=== PATIENT | male | born 1985 | race Caucasian/White ===

== ENCOUNTER 2021-05-14 20:32 | Emergency (ER) | payer BC, OTHER | END 2021-05-14 21:15 | disposition home or self-care (01) | LOC: FB.ED 20:32 | DX: S06.0X0A Concussion without loss of consciousness, initial encounter (principal); S01.01XA Laceration without foreign body of scalp, initial encounter; W18.09XA Striking against other object with subsequent fall, initial encounter; Y92.002 Bathroom of unspecified non-institutional (private) residence as the place of occurrence of the external cause | CPT/HCPCS: 36415; 80048; 85025; 93005; 93010; 99284; 99284-25 ==